=== PATIENT | male | born 1955 | race African-American/Black ===

== ENCOUNTER 2017-04-08 15:00 | Outpatient (CLI) ==
--- NOTE | 2017-04-08 16:01 | DI ---
EXAM: Radiographs, left shoulder HISTORY: Left shoulder pain. COMPARISON: None available. TECHNIQUE: Three views. FINDINGS: Bone mineralization is normal. There is no fracture or dislocation. The joint spaces ar e maintained. No focal soft tissue abnormality is seen. IMPRESSION: No abnormality of the left shoulder.
== END 2017-04-08 15:01 | disposition home or self-care (01) ==
LOC: RAD 15:00
PROVIDERS: ATTEND Family Medicine
DX: M25.512 Pain in left shoulder (principal)